=== PATIENT | female | born 1955 | race Caucasian/White ===

== ENCOUNTER 2018-05-23 11:18 | Emergency (ER) | payer OTHER, MEDICAID ==
[~2018-05-23] VITALS: Ht 170.2 cm; Wt 105.7 kg
[2018-05-23 11:31] VITALS: BP 192/92
[2018-05-23] MEDS ORDERED: methylPREDNISolone SOD SUCC 125 MG/2 ML IVPush ONE (12:30)
[2018-05-23] MEDS ORDERED: KETOROLAC 30 MG/1 ML IVPush ONE (12:30)
[2018-05-23] MEDS ORDERED: DIAZEPAM 5 MG/ML, 2ML IVPush ONE (12:30)
[2018-05-23] MEDS ORDERED: SODIUM CHLORIDE FLUSH 10ML SYR IVF ONE (12:30)
[2018-05-23 12:37] LABS: BASOPHILS # (AUTO) 0.05 x10^3/uL (0-0.1); BASOPHILS % (AUTO) 1 % (0-1); EOSINOPHILS # (AUTO) 0.12 x10^3/uL (0-0.4); EOSINOPHILS % (AUTO) 2 % (1-7); LYMPHOCYTES # (AUTO) 1.67 x10^3/uL (1-3.4); LYMPHOCYTES % (AUTO) 29 % (22-44); MD NO; MEAN CORPUSCULAR HEMOGLOBIN 29.6 pg (27.0-34.8); MEAN CORPUSCULAR HGB CONC 33.4 g/dL (32.4-35.8); MEAN CORPUSCULAR VOLUME 88.7 fL (80-100); MEAN PLATELET VOLUME 7.9 fL (7.4-10.4); MONOCYTES # (AUTO) 0.41 x10^3/uL (0.2-0.8); MONOCYTES % (AUTO) 7 % (2-9); NEUTROPHILS # (AUTO) 3.52 x10^3/uL (1.8-6.8); NEUTROPHILS % (AUTO) 61 % (42-75); PLATELET COUNT 272 x10^3/uL (130-400); RED BLOOD COUNT 4.71 x10^6/uL (3.82-5.3); RED CELL DISTRIBUTION WIDTH 13.6 % (9.6-15.2)
[2018-05-23 12:46] LABS: ALANINE AMINOTRANSFERASE 20 U/L (12-78); ALBUMIN 3.9 g/dL (3.4-5.0); ANION GAP 6 mmol/L (5-15); CALCIUM 9.2 mg/dL (8.5-10.1); CHLORIDE 111 mmol/L (98-107); CREATININE 0.85 mg/dL (0.55-1.02)
[2018-05-23] MEDS ORDERED: methylPREDNISolone SOD SUCC 125 MG/2 ML ONE (12:46)
[2018-05-23] MEDS ORDERED: KETOROLAC 30 MG/1 ML ONE (12:46)
[2018-05-23 12:56] LABS: ALKALINE PHOSPHATASE 100 U/L (45-117); BILIRUBIN,TOTAL 0.4 mg/dL (0.2-1.0); TOTAL PROTEIN 6.9 g/dL (6.4-8.2)
--- NOTE | 2018-05-23 13:19 | NUR ---
PT REPORTS RELIEF OF DISCOMFORT AFTER VALIUM GIVEN
--- NOTE | 2018-05-23 13:30 | NUR ---
PT DRESSED SELF STS SHE IS BEING DCD WITH OUT GETTING MORE PAIN MEDS REQUIRED PT TO PULL UP SLEVE TO DC IV SHE WAS RELUCTANT STATING SHE COULD DO IT AT HOME VERY ANXIOUS TO LEAVE STS DOES NOT WANT HER DC PAPERS
--- NOTE | 2018-05-23 13:44 | NUR ---
PT UPSET WITH CARE ON DC REFUSED TO WAIT FOR DC PAPERS OR RX STS WE HAVE NOT TREATED HER PAIN PT REFUSED WC ON DC AND AMBULATED WELL WITH STEADY GAIT PT VERBALY ABUSSIVE ON HER WAY OUT REFUSED TO GO TO DC DESK
[2018-05-23] MEDS ORDERED: MORPHINE SULFATE 4 MG/ML, 1ML IVPush PRN (14:00)
== END 2018-05-23 13:57 | disposition home or self-care (01) ==
LOC: ED 13:51
DX: M54.16 Radiculopathy, lumbar region (principal); M54.42 Lumbago with sciatica, left side; Z87.891 Personal history of nicotine dependence; Z90.49 Acquired absence of other specified parts of digestive tract
CPT/HCPCS: 36415; 71045; 80053; 85025; 93005; 96374; 96375; 99284; J1885; J2930; J3360

== ENCOUNTER 2019-04-01 09:57 | Emergency (ER) | payer MEDICAID, OTHER ==
[~2019-04-01] VITALS: Ht 172.7 cm; Wt 93.1 kg
[~2019-04-01 09:57] MED LIST: DULO60CA7 PO; HYDR-36 PO; IBUP-1223 PO; LAMO25TB7 PO; LISI-424 PO; METH750T87 PO; OMEP40CA42 PO; TERI14TA PO
--- NOTE | 2019-04-01 10:29 | NUR ---
FIRST CONTACT WITH PT. PT C/O: RIGHT SHOULDER PAIN SINCE DECEMBER 2018 WITH A MECHANICAL GLF "last month" BECAUSE OF DOG. "I GO TO PAIN MANAGEMENT AND THEY SUGGESTED AN INJECTION IN THE [place] BY MY APPOINTMENT GOT RESCHEDULED OUT FURTHER." PT TAKES LISINOPRIL DAILY AND REPORTS TAKING IT THIS MORNING. PT REPORTS INFUSIONS OF STEROIDS AND LAST IV INFUSION WAS ON SUNDAY, PT REPORTS TAKING ORAL STEROIDS AT HOME. PT'S AOX4. RESPS EVEN AND UNLABORED. BP/SPO2 MONITORS IN PLACE. CALL LIGHT WITHIN REACH.
--- NOTE | 2019-04-01 10:33 | NUR ---
edmd at bedside to evaluate at this time.
--- NOTE | 2019-04-01 10:44 | NUR ---
pt to xray at this time.
[2019-04-01] MEDS ORDERED: HYDROmorphone 1 MG/ML, 1ML INJ ONE (10:46)
[2019-04-01] MEDS ORDERED: ONDANSETRON ODT 4 MG ONE (10:46)
--- NOTE | 2019-04-01 10:49 | NUR ---
pt amb to br with steady gait.
--- NOTE | 2019-04-01 10:49 | NUR ---
pt back to room from xray.
--- NOTE | 2019-04-01 10:57 | NUR ---
pt medicated per emar. pt tolerated well.
[2019-04-01] MEDS ORDERED: HYDROmorphone 1 MG/ML, 1ML INJ IM ONE (11:00)
[2019-04-01] MEDS ORDERED: ONDANSETRON ODT 4 MG PO ONE (11:00)
[2019-04-01 12:00] VITALS: BP 142/85
--- NOTE | 2019-04-01 12:20 | NUR ---
SLING APPLIED BY EMT.
--- NOTE | 2019-04-01 12:32 | NUR ---
Patient given discharge instructions and they have confirmed that they understand the instructions. Patient ambulatory with steady gait.
== END 2019-04-01 12:33 | disposition home or self-care (01) ==
LOC: ED 12:15
DX: M25.511 Pain in right shoulder (principal); G89.29 Other chronic pain; I10 Essential (primary) hypertension
CPT/HCPCS: 73030; 96372; 99283; J1170; Q0162

== ENCOUNTER 2019-05-08 11:06 | Emergency (ER) | payer MEDICAID, OTHER ==
[~2019-05-08] VITALS: Ht 172.7 cm; Wt 90.0 kg
--- NOTE | 2019-05-08 11:30 | NUR ---
Late Entry: Pt changed into gown, resting in gurney, NAD, denies additional needs, call light within reach, daughter at bedside, WCTM.
[2019-05-08] MEDS ORDERED: MORPHINE SULFATE 4 MG/ML, 1ML IVPush PRN (12:00)
[2019-05-08] MEDS ORDERED: SODIUM CHLORIDE FLUSH 10ML SYR IVF ONE (12:00)
[2019-05-08] MEDS ORDERED: KETOROLAC 30 MG/1 ML IVPush ONE (12:00)
[2019-05-08] MEDS ORDERED: DIAZEPAM 5 MG/ML, 2ML IVPush ONE (12:00)
--- NOTE | 2019-05-08 12:30 | NUR ---
late entry: Pt resting in romariorkristin, daughter at bedside NAD, denies additional needs, call light within reach, Dr Nathan performed evaluation and discussed plan of care with pt, WCTM.
[2019-05-08] MEDS ORDERED: DIAZEPAM 5 MG/ML, 2ML ONE (12:34)
[2019-05-08] MEDS ORDERED: MORPHINE SULFATE 4 MG/ML, 1ML ONE (12:35)
[2019-05-08] MEDS ORDERED: KETOROLAC 30 MG/1 ML ONE (12:35)
[2019-05-08 13:15] VITALS: BP 170/86
--- NOTE | 2019-05-08 13:35 | NUR ---
pt ready to discharge, given instructions, getting dressed with daughters assistance, NAD, denies additional needs at this time.
== END 2019-05-08 13:38 | disposition home or self-care (01) ==
LOC: ED 12:04
DX: M54.5 Low back pain (principal); I10 Essential (primary) hypertension; Z98.51 Tubal ligation status; Z90.49 Acquired absence of other specified parts of digestive tract
CPT/HCPCS: 72110; 96374; 96375; 99284; J1885; J2270; J3360

== ENCOUNTER 2019-05-26 11:13 | Inpatient (IN) | payer OTHER ==
[~2019-05-26] VITALS: Ht 172.7 cm; Wt 91.8 kg
[2019-05-26] MEDS ORDERED: HYDROmorphone 1 MG/ML, 1ML INJ ONE ×2 (12:16→14:02)
[2019-05-26] MEDS ORDERED: ONDANSETRON 2MG/ML, 2ML ONE (12:16)
[2019-05-26] MEDS: HYDROmorphone 2 MG/ML, 1ML IVPush PRN ×2 (12:27→14:04)
[2019-05-26] MEDS ORDERED: ONDANSETRON 2MG/ML, 2ML IVPush ONE (12:30)
[2019-05-26] MEDS ORDERED: SODIUM CHLORIDE FLUSH 10ML SYR IVF ONE (12:30)
--- NOTE | 2019-05-26 12:45 | NUR ---
BREAK RN NOTE: PT PRESENTS TO ED WITH C/O LOWER BACK PAIN THAT IS CHRONIC BUT WORSE IN LAST MONTH. PT STATES SHE BELIEVES HER NEUROSTIMULATOR IS DISPLACED. NO ERYTHEMA, MINIMAL EDEMA NOTED TO SITE (JUST LEFT OF MIDLINE LOWER BACK.) PT IS HYPERTENSIVE, DID NOT TAKE HTN MEDS TODAY. NOTES SHE HAD SOME LEFT ARM PAIN IN WAIT ROOM, EKG ORDERED. PIV PLACED, PT MEDICATED PER EMAR, ALL MONITORS IN PLACE. NSR ON SPOUTING INSTALLER WITH NO ECTOPY NOTED. CALL LIGHT IN REACH. REPORT GIVEN TO PRIMARY RN BLADIMIR.
[2019-05-26 12:56] LABS: BASOPHILS # (AUTO) 0.09 x10^3/uL (0-0.1); BASOPHILS % (AUTO) 1 % (0-1); EOSINOPHILS # (AUTO) 0.09 x10^3/uL (0-0.4); EOSINOPHILS % (AUTO) 1 % (1-7); LYMPHOCYTES # (AUTO) 2.17 x10^3/uL (1-3.4); LYMPHOCYTES % (AUTO) 25 % (22-44); MD NO; MEAN CORPUSCULAR HEMOGLOBIN 29.5 pg (27.0-34.8); MEAN CORPUSCULAR HGB CONC 33.3 g/dL (32.4-35.8); MEAN CORPUSCULAR VOLUME 88.5 fL (80-100); MEAN PLATELET VOLUME 7.5 fL (7.4-10.4); MONOCYTES # (AUTO) 0.53 x10^3/uL (0.2-0.8); MONOCYTES % (AUTO) 6 % (2-9); NEUTROPHILS # (AUTO) 5.95 x10^3/uL (1.8-6.8); NEUTROPHILS % (AUTO) 67 % (42-75); PLATELET COUNT 318 x10^3/uL (130-400); RED BLOOD COUNT 4.92 x10^6/uL (3.82-5.3); RED CELL DISTRIBUTION WIDTH 14.3 % (9.6-15.2)
[2019-05-26] MEDS ORDERED: LISINOPRIL 20 MG TABLET PO ONE (13:00)
[2019-05-26 13:06] LABS: ALBUMIN 3.8 g/dL (3.4-5.0); ANION GAP 6 mmol/L (5-15); CALCIUM 9.2 mg/dL (8.5-10.1); CHLORIDE 109 mmol/L (98-107); CREATININE 0.82 mg/dL (0.55-1.02)
[2019-05-26] MEDS ORDERED: LISINOPRIL 20 MG TABLET ONE (13:10)
--- NOTE | 2019-05-26 13:17 | NUR ---
pt medicated per emar pt tolerated well.
--- NOTE | 2019-05-26 13:23 | NUR ---
PT TO CT AT THIS TIME.
[2019-05-26] MEDS ORDERED: GABA600T7 PO (13:26)
[2019-05-26] MEDS ORDERED: TIZA4TAB2 PO (13:27)
[2019-05-26 13:41] LABS: TROPONIN I < 0.015 ng/mL (0.000-0.045)
[2019-05-26] MEDS ORDERED: OMNIPAQUE 350 MG/ML, 100ML BOTTLE ONE (13:52)
--- NOTE | 2019-05-26 14:16 | NUR ---
PT MEDICATED PER EMAR FOR PAIN. PT TOLERATED WELL.
[2019-05-26] MEDS ORDERED: SODIUM CHLORIDE FLUSH 10ML SYR IVF PRN (15:00)
[2019-05-26] MEDS: NICOTINE 7 MG/24 HR PATCH.TD24 TD SCH (15:10)
--- NOTE | 2019-05-26 15:11 | NUR ---
pt refused nicotine patch at this time. pt's aox4. resps even and unlabored. pt's daughter at bedside.
--- NOTE | 2019-05-26 15:25 | NUR ---
REPORT GIVEN TO AMADOU RM. ALL QUESTIONS ANSWERED.
[2019-05-26] MEDS ORDERED: METHOCARBAMOL 500 MG TABLET PO PRN (15:30)
[2019-05-26] MEDS ORDERED: IBUPROFEN 600 MG TABLET PO PRN (15:30)
[2019-05-26] MEDS ORDERED: hydrALAzine 20 MG/ML, 1ML IVPush PRN (15:30)
[2019-05-26] MEDS ORDERED: POLYETHYLENE GLYCOL 17 GM PACKET PO PRN (15:30)
[2019-05-26] MEDS ORDERED: LABETALOL 5MG/ML, 20ML IVPush PRN (15:30)
[2019-05-26] MEDS ORDERED: ACETAMINOPHEN 325 MG TABLET PO PRN (15:30)
[2019-05-26] MEDS ORDERED: LIDODERM 5% PATCH TD PRN (15:30)
[2019-05-26 16:02] LABS: INTERNATIONAL NORMALIZED RATIO 0.91 (0.93-1.1); PROTHROMBIN TIME 9.6 Seconds (9.6-11.5)
[2019-05-26 16:04] VITALS: BP 160/82
[2019-05-26] MEDS ORDERED: OMEPRAZOLE 20 MG CAPSULE.DR PO ONE (16:30)
[2019-05-26] MEDS: GABAPENTIN 300 MG CAPSULE PO SCH ×2 (16:46→20:33)
[2019-05-26] MEDS: OXYcodone/APAP 5/325MG TABLET PO PRN ×2 (16:47→21:16)
[2019-05-26] MEDS: BACLOFEN 10 MG TABLET PO PRN (16:48)
[2019-05-26] MEDS: morphine SULFATE 10 MG/ML, 1ML IVPush PRN (18:19)
[2019-05-26] MEDS: LACTULOSE 10 GM/15 ML UDC PO SCH (20:27)
[2019-05-26] MEDS: LAMOTRIGINE 25 MG TABLET PO SCH (20:33)
[2019-05-26 21:05] VITALS: BP 125/52
[2019-05-27] MEDS: OXYcodone/APAP 5/325MG TABLET PO PRN ×4 (01:43→20:52)
[2019-05-27 01:44] VITALS: BP 164/91
[2019-05-27] MEDS: morphine SULFATE 10 MG/ML, 1ML IVPush PRN ×5 (04:27→22:03)
[2019-05-27 05:58] LABS: CHLORIDE 108 mmol/L (98-107)
[2019-05-27 06:05] LABS: ALANINE AMINOTRANSFERASE 15 U/L (12-78); ALBUMIN 3.2 g/dL (3.4-5.0); ALKALINE PHOSPHATASE 70 U/L (45-117); ANION GAP 3 mmol/L (5-15); BILIRUBIN,TOTAL 0.3 mg/dL (0.2-1.0); CALCIUM 8.6 mg/dL (8.5-10.1); CREATININE 0.82 mg/dL (0.55-1.02); TOTAL PROTEIN 6.1 g/dL (6.4-8.2)
[2019-05-27 06:07] LABS: BASOPHILS # (AUTO) 0.06 x10^3/uL (0-0.1); BASOPHILS % (AUTO) 1 % (0-1); EOSINOPHILS # (AUTO) 0.24 x10^3/uL (0-0.4); EOSINOPHILS % (AUTO) 4 % (1-7); LYMPHOCYTES # (AUTO) 2.41 x10^3/uL (1-3.4); LYMPHOCYTES % (AUTO) 41 % (22-44); MD NO; MEAN CORPUSCULAR HEMOGLOBIN 29.8 pg (27.0-34.8); MEAN CORPUSCULAR HGB CONC 33.2 g/dL (32.4-35.8); MEAN CORPUSCULAR VOLUME 89.8 fL (80-100); MEAN PLATELET VOLUME 7.9 fL (7.4-10.4); MONOCYTES # (AUTO) 0.54 x10^3/uL (0.2-0.8); MONOCYTES % (AUTO) 9 % (2-9); NEUTROPHILS % (AUTO) 45 % (42-75); PLATELET COUNT 267 x10^3/uL (130-400); RED BLOOD COUNT 4.29 x10^6/uL (3.82-5.3); RED CELL DISTRIBUTION WIDTH 14.4 % (9.6-15.2)
[2019-05-27 07:17] VITALS: BP 135/80
[2019-05-27] MEDS: GABAPENTIN 300 MG CAPSULE PO SCH ×3 (08:05→20:39)
[2019-05-27] MEDS: DULOXETINE 30 MG CAPSULE.DR PO SCH (08:05)
[2019-05-27] MEDS: SENNA/DOCUSATE TABLET PO SCH (08:06)
[2019-05-27] MEDS: LAMOTRIGINE 25 MG TABLET PO SCH ×2 (08:06→20:39)
[2019-05-27] MEDS: LACTULOSE 10 GM/15 ML UDC PO SCH ×2 (08:06→20:40)
[2019-05-27] MEDS ORDERED: TIZANIDINE 4MG TABLET PO SCH (09:00)
[2019-05-27] MEDS ORDERED: TERIFLUNOMIDE 14 MG PO SCH (09:00)
[2019-05-27] MEDS ORDERED: LISINOPRIL 10 MG TABLET PO SCH (09:00)
[2019-05-27] MEDS: ERGOCALCIFEROL 50,000 UNIT CAPSULE PO SCH (09:41)
[2019-05-27] MEDS: HEPARIN 5,000 UNITS/ML, 1ML SQ SCH ×2 (14:30→19:33)
[2019-05-27] MEDS ORDERED: OXYB-39 PO (15:13)
[2019-05-27] MEDS: NICOTINE 7 MG/24 HR PATCH.TD24 TD SCH (15:21)
[2019-05-27 15:28] VITALS: BP 181/97
[2019-05-27 20:09] VITALS: BP 177/97
[2019-05-27] MEDS ORDERED: GABAPENTIN 100 MG CAPSULE ONE (20:34)
[2019-05-27] MEDS: BACLOFEN 10 MG TABLET PO PRN (20:39)
[2019-05-27] MEDS: METOCLOPRAMIDE 5 MG/ML, 2ML IVPush PRN (22:08)
[2019-05-28 00:32] VITALS: BP 169/82
[2019-05-28] MEDS: OXYcodone/APAP 5/325MG TABLET PO PRN ×4 (00:44→18:24)
[2019-05-28] MEDS: morphine SULFATE 10 MG/ML, 1ML IVPush PRN ×4 (02:32→21:18)
[2019-05-28] MEDS: HEPARIN 5,000 UNITS/ML, 1ML SQ SCH ×2 (04:37→07:28)
[2019-05-28] MEDS: BACLOFEN 10 MG TABLET PO PRN (05:03)
[2019-05-28 06:30] VITALS: BP 164/88
[2019-05-28] MEDS: DULOXETINE 30 MG CAPSULE.DR PO SCH (07:27)
[2019-05-28] MEDS: LAMOTRIGINE 25 MG TABLET PO SCH ×2 (07:27→21:00)
[2019-05-28] MEDS: TERIFLUNOMIDE 14 MG PO SCH (08:50)
[2019-05-28] MEDS: CYCLOBENZAPRINE 10 MG TABLET PO SCH ×3 (08:51→21:04)
[2019-05-28] MEDS: LACTULOSE 10 GM/15 ML UDC PO SCH ×2 (08:51→21:05)
[2019-05-28] MEDS: AMLODIPINE 5 MG TABLET PO SCH ×2 (08:52→21:04)
[2019-05-28] MEDS: GABAPENTIN 300 MG CAPSULE PO SCH ×3 (08:52→21:04)
[2019-05-28] MEDS: LISINOPRIL 40 MG TABLET PO SCH (08:52)
[2019-05-28] MEDS: SENNA/DOCUSATE TABLET PO SCH (08:52)
[2019-05-28 15:46] VITALS: BP 125/71
[2019-05-28] MEDS: NICOTINE 7 MG/24 HR PATCH.TD24 TD SCH (16:28)
[2019-05-28 18:53] VITALS: BP 165/92
[2019-05-29] MEDS: morphine SULFATE 10 MG/ML, 1ML IVPush PRN ×5 (00:19→18:38)
[2019-05-29 00:37] VITALS: BP 172/99
[2019-05-29] MEDS: OXYcodone/APAP 5/325MG TABLET PO PRN ×3 (02:50→20:24)
[2019-05-29] MEDS ORDERED: MELATONIN 3 MG TABLET PO SCH (03:00)
[2019-05-29] MEDS ORDERED: ROPivacaine/PF 0.2%, 10 ML ONE (07:21)
[2019-05-29] MEDS ORDERED: LIDOCAINE-MPF 1%, 5ML ONE (07:22)
[2019-05-29] MEDS: TERIFLUNOMIDE 14 MG PO SCH (09:00)
[2019-05-29 09:30] VITALS: BP 184/84
[2019-05-29] MEDS: LACTULOSE 10 GM/15 ML UDC PO SCH ×2 (09:54→20:24)
[2019-05-29] MEDS: SENNA/DOCUSATE TABLET PO SCH (09:55)
[2019-05-29] MEDS: DULOXETINE 30 MG CAPSULE.DR PO SCH (09:56)
[2019-05-29] MEDS: LAMOTRIGINE 25 MG TABLET PO SCH ×2 (09:57→20:24)
[2019-05-29] MEDS: GABAPENTIN 300 MG CAPSULE PO SCH ×3 (09:57→20:23)
[2019-05-29] MEDS: LISINOPRIL 40 MG TABLET PO SCH (09:57)
[2019-05-29] MEDS: CYCLOBENZAPRINE 10 MG TABLET PO SCH ×3 (09:57→20:23)
[2019-05-29] MEDS: AMLODIPINE 5 MG TABLET PO SCH ×2 (10:00→20:23)
[2019-05-29 13:58] VITALS: BP 155/70
[2019-05-29] MEDS: NICOTINE 7 MG/24 HR PATCH.TD24 TD SCH (15:30)
[2019-05-29 20:02] VITALS: BP 156/82
[2019-05-29] MEDS: OXYBUTYNIN CHLORIDE 5 MG TABLET PO SCH (20:23)
[2019-05-29] MEDS: CALCIUM CARBONATE 500 MG TAB.CHEW PO PRN (22:19)
[2019-05-29] MEDS: TRAZODONE 50MG TABLET PO PRN (22:19)
[2019-05-30 01:43] VITALS: BP 156/98
[2019-05-30] MEDS: morphine SULFATE 10 MG/ML, 1ML IVPush PRN ×3 (02:03→20:45)
[2019-05-30] MEDS: METOCLOPRAMIDE 5 MG/ML, 2ML IVPush PRN (05:31)
[2019-05-30 07:32] VITALS: BP 161/97
[2019-05-30] MEDS: ONDANSETRON ODT 4 MG PO PRN ×2 (08:42→20:43)
[2019-05-30] MEDS: SENNA/DOCUSATE TABLET PO SCH (08:43)
[2019-05-30] MEDS: OXYBUTYNIN CHLORIDE 5 MG TABLET PO SCH ×2 (08:43→20:46)
[2019-05-30] MEDS: DULOXETINE 30 MG CAPSULE.DR PO SCH (08:43)
[2019-05-30] MEDS: LISINOPRIL 40 MG TABLET PO SCH (08:43)
[2019-05-30] MEDS: OMEPRAZOLE 20 MG CAPSULE.DR PO SCH (08:43)
[2019-05-30] MEDS: GABAPENTIN 300 MG CAPSULE PO SCH ×3 (08:43→20:46)
[2019-05-30] MEDS: AMLODIPINE 5 MG TABLET PO SCH ×2 (08:44→20:45)
[2019-05-30] MEDS: CHLORTHALIDONE 25 MG TABLET PO SCH (08:44)
[2019-05-30] MEDS: LAMOTRIGINE 25 MG TABLET PO SCH ×2 (08:44→20:46)
[2019-05-30] MEDS: CYCLOBENZAPRINE 10 MG TABLET PO SCH ×3 (08:45→20:46)
[2019-05-30] MEDS: LACTULOSE 10 GM/15 ML UDC PO SCH ×2 (08:45→20:45)
[2019-05-30] MEDS: TERIFLUNOMIDE 14 MG PO SCH (08:45)
[2019-05-30] MEDS: BUTALB/APAP/CAFFEINE 50MG/325MG/40MG PO PRN ×3 (09:56→22:40)
[2019-05-30 13:51] VITALS: BP 152/83
[2019-05-30] MEDS: NICOTINE 7 MG/24 HR PATCH.TD24 TD SCH (15:30)
[2019-05-30] MEDS ORDERED: PROMETHAZINE 25 MG/ML, 1ML IM PRN (16:00)
[2019-05-30 18:56] VITALS: BP 104/81
[2019-05-30] MEDS: TRAZODONE 50MG TABLET PO PRN (22:40)
[2019-05-30] MEDS: OXYcodone 5 MG/5 ML ORAL.SOL UDC PO PRN (22:40)
[2019-05-31 02:10] VITALS: BP 113/67
[2019-05-31] MEDS: OMEPRAZOLE 20 MG CAPSULE.DR PO SCH (06:04)
[2019-05-31 07:13] VITALS: BP 108/72
[2019-05-31] MEDS: TERIFLUNOMIDE 14 MG PO SCH (08:46)
[2019-05-31] MEDS: LACTULOSE 10 GM/15 ML UDC PO SCH ×2 (08:48→20:12)
[2019-05-31] MEDS: LAMOTRIGINE 25 MG TABLET PO SCH ×2 (08:49→20:12)
[2019-05-31] MEDS: GABAPENTIN 300 MG CAPSULE PO SCH ×3 (08:49→20:12)
[2019-05-31] MEDS: SENNA/DOCUSATE TABLET PO SCH (08:49)
[2019-05-31] MEDS: OXYBUTYNIN CHLORIDE 5 MG TABLET PO SCH ×2 (08:50→20:12)
[2019-05-31] MEDS: CYCLOBENZAPRINE 10 MG TABLET PO SCH ×3 (08:51→20:12)
[2019-05-31] MEDS: LISINOPRIL 40 MG TABLET PO SCH (08:51)
[2019-05-31] MEDS: BUTALB/APAP/CAFFEINE 50MG/325MG/40MG PO PRN ×3 (08:51→20:17)
[2019-05-31] MEDS: CHLORTHALIDONE 25 MG TABLET PO SCH (08:52)
[2019-05-31] MEDS: DULOXETINE 30 MG CAPSULE.DR PO SCH (08:53)
[2019-05-31 10:32] VITALS: BP 116/79
[2019-05-31] MEDS: morphine SULFATE 10 MG/ML, 1ML IVPush PRN ×2 (10:33→16:20)
[2019-05-31] MEDS: OXYcodone 5 MG/5 ML ORAL.SOL UDC PO PRN ×2 (13:06→20:22)
[2019-05-31 14:00] VITALS: BP 119/79
[2019-05-31] MEDS: NICOTINE 7 MG/24 HR PATCH.TD24 TD SCH (15:03)
[2019-05-31 19:44] VITALS: BP 133/79
[2019-05-31] MEDS: CALCIUM CARBONATE 500 MG TAB.CHEW PO PRN (20:17)
[2019-05-31] MEDS: TRAZODONE 50MG TABLET PO PRN (20:17)
[2019-06-01 01:09] VITALS: BP 116/59
[2019-06-01] MEDS: OXYcodone 5 MG/5 ML ORAL.SOL UDC PO PRN ×4 (05:08→23:49)
[2019-06-01] MEDS: OMEPRAZOLE 20 MG CAPSULE.DR PO SCH ×2 (05:29→20:52)
[2019-06-01 07:23] VITALS: BP 137/84
[2019-06-01] MEDS: TERIFLUNOMIDE 14 MG PO SCH (08:20)
[2019-06-01] MEDS: GABAPENTIN 300 MG CAPSULE PO SCH ×3 (08:21→20:37)
[2019-06-01] MEDS: LACTULOSE 10 GM/15 ML UDC PO SCH ×2 (08:21→20:37)
[2019-06-01] MEDS: CYCLOBENZAPRINE 10 MG TABLET PO SCH ×3 (08:21→20:37)
[2019-06-01] MEDS: SENNA/DOCUSATE TABLET PO SCH (08:21)
[2019-06-01] MEDS: LISINOPRIL 40 MG TABLET PO SCH (08:22)
[2019-06-01] MEDS: DULOXETINE 30 MG CAPSULE.DR PO SCH (08:22)
[2019-06-01] MEDS: LAMOTRIGINE 25 MG TABLET PO SCH ×2 (08:22→20:37)
[2019-06-01] MEDS: CHLORTHALIDONE 25 MG TABLET PO SCH (08:22)
[2019-06-01] MEDS: OXYBUTYNIN CHLORIDE 5 MG TABLET PO SCH ×2 (08:22→20:37)
[2019-06-01] MEDS: morphine SULFATE 10 MG/ML, 1ML IVPush PRN ×4 (08:34→22:46)
[2019-06-01] MEDS ORDERED: MAGNESIUM CITRATE 300ML ORAL SOL PO ONE (12:00)
[2019-06-01 14:23] VITALS: BP 114/73
[2019-06-01] MEDS: NICOTINE 7 MG/24 HR PATCH.TD24 TD SCH (15:30)
[2019-06-01 20:07] VITALS: BP 130/78
[2019-06-01] MEDS: CALCIUM CARBONATE 500 MG TAB.CHEW PO PRN (23:50)
[2019-06-02 00:08] VITALS: BP 162/98
[2019-06-02] MEDS: TRAZODONE 50MG TABLET PO PRN (00:57)
[2019-06-02 04:54] LABS: BASOPHILS # (AUTO) 0.05 x10^3/uL (0-0.1); BASOPHILS % (AUTO) 1 % (0-1); EOSINOPHILS # (AUTO) 0.17 x10^3/uL (0-0.4); EOSINOPHILS % (AUTO) 3 % (1-7); LYMPHOCYTES # (AUTO) 2.51 x10^3/uL (1-3.4); LYMPHOCYTES % (AUTO) 39 % (22-44); MD NO; MEAN CORPUSCULAR HEMOGLOBIN 29.5 pg (27.0-34.8); MEAN CORPUSCULAR VOLUME 89.3 fL (80-100); MEAN PLATELET VOLUME 8.1 fL (7.4-10.4); MONOCYTES # (AUTO) 0.54 x10^3/uL (0.2-0.8); MONOCYTES % (AUTO) 8 % (2-9); NEUTROPHILS # (AUTO) 3.14 x10^3/uL (1.8-6.8); NEUTROPHILS % (AUTO) 49 % (42-75); PLATELET COUNT 265 x10^3/uL (130-400); RED BLOOD COUNT 4.26 x10^6/uL (3.82-5.3); RED CELL DISTRIBUTION WIDTH 13.7 % (9.6-15.2)
[2019-06-02 05:04] LABS: ANION GAP 5 mmol/L (5-15); CALCIUM 9.2 mg/dL (8.5-10.1); CHLORIDE 103 mmol/L (98-107)
[2019-06-02 05:07] LABS: ALANINE AMINOTRANSFERASE 15 U/L (12-78); ALKALINE PHOSPHATASE 76 U/L (45-117); BILIRUBIN,TOTAL 0.3 mg/dL (0.2-1.0); CREATININE 0.78 mg/dL (0.55-1.02); TOTAL PROTEIN 6.3 g/dL (6.4-8.2)
[2019-06-02 06:51] VITALS: BP 149/83
[2019-06-02] MEDS: OXYcodone 5 MG/5 ML ORAL.SOL UDC PO PRN (07:56)
[2019-06-02] MEDS: SENNA/DOCUSATE TABLET PO SCH (07:58)
[2019-06-02] MEDS: LACTULOSE 10 GM/15 ML UDC PO SCH ×2 (07:58→21:00)
[2019-06-02] MEDS: NICOTINE 7 MG/24 HR PATCH.TD24 TD SCH (07:59)
[2019-06-02] MEDS: LAMOTRIGINE 25 MG TABLET PO SCH ×2 (08:04→22:17)
[2019-06-02] MEDS: DULOXETINE 30 MG CAPSULE.DR PO SCH (08:04)
[2019-06-02] MEDS: OXYBUTYNIN CHLORIDE 5 MG TABLET PO SCH ×2 (08:04→22:17)
[2019-06-02] MEDS: GABAPENTIN 300 MG CAPSULE PO SCH ×3 (08:04→22:17)
[2019-06-02] MEDS: CHLORTHALIDONE 25 MG TABLET PO SCH (08:05)
[2019-06-02] MEDS: LISINOPRIL 40 MG TABLET PO SCH (08:05)
[2019-06-02] MEDS: CYCLOBENZAPRINE 10 MG TABLET PO SCH ×3 (08:05→20:31)
[2019-06-02] MEDS: TERIFLUNOMIDE 14 MG PO SCH (08:05)
[2019-06-02] MEDS ORDERED: AMLODIPINE 5 MG TABLET ONE (08:36)
[2019-06-02] MEDS: AMLODIPINE 5 MG TABLET PO SCH (08:52)
[2019-06-02] MEDS: BUTALB/APAP/CAFFEINE 50MG/325MG/40MG PO PRN (09:40)
[2019-06-02] MEDS: morphine SULFATE 10 MG/ML, 1ML IVPush PRN (12:10)
[2019-06-02] MEDS ORDERED: BUPIVACAINE/PF-EPI 0.5% 1:200K ONE (13:05)
[2019-06-02] MEDS ORDERED: BACITRACIN 50,000 UNIT ONE (13:05)
[2019-06-02] MEDS ORDERED: FENTANYL PF 250 MCG/5ML ONE (13:43)
[2019-06-02] MEDS ORDERED: MIDAZOLAM 1 MG/ML, 2ML ONE (13:43)
[2019-06-02 13:49] VITALS: BP 144/79
[2019-06-02] MEDS ORDERED: CHLORHEXIDINE 15 ML UDC ONE (14:01)
[2019-06-02] MEDS ORDERED: EPHEDRINE 50 MG/ML, 1ML ONE (14:37)
[2019-06-02] MEDS ORDERED: LIDOCAINE PF 2%, 5ML ONE (14:37)
[2019-06-02] MEDS ORDERED: PHENYLEPHRINE 10 MG/ML ONE (14:37)
[2019-06-02] MEDS ORDERED: PROPOFOL 10 MG/ML, 50ML ONE (14:37)
[2019-06-02] MEDS ORDERED: DEXAMETHASONE 4 MG/ML, 1ML ONE ×2 (14:37→16:17)
[2019-06-02] MEDS ORDERED: CHLORHEXIDINE 15 ML UDC MM ONE (15:00)
[2019-06-02] MEDS ORDERED: MIDAZOLAM 1 MG/ML, 2ML IV PRN (15:30)
[2019-06-02] MEDS ORDERED: DIAZEPAM 5 MG/ML, 2ML IVPush PRN (15:30)
[2019-06-02] MEDS ORDERED: MEPERIDINE/PF 25MG/ML,1ML IVPush PRN (15:30)
[2019-06-02] MEDS ORDERED: OXYcodone 5 MG/5 ML ORAL.SOL UDC PO PRN (15:30)
[2019-06-02] MEDS ORDERED: METOPROLOL 1 MG/ML, 5ML IV PRN (15:30)
[2019-06-02] MEDS ORDERED: hydrALAzine 20 MG/ML, 1ML IV PRN (15:30)
[2019-06-02] MEDS ORDERED: PROMETHAZINE 25 MG/ML, 1ML IV PRN (15:30)
[2019-06-02] MEDS ORDERED: ACETAMINOPHEN 325 MG TABLET PO PRN (15:30)
[2019-06-02] MEDS ORDERED: PROPOFOL 50 ML ONE (16:08)
[2019-06-02] MEDS ORDERED: CEFAZOLIN 1,000 MG ONE (16:17)
[2019-06-02] MEDS ORDERED: ROCURONIUM 10MG/ML,5ML ONE (16:17)
[2019-06-02] MEDS ORDERED: SUCCINYLCHOLINE 20 MG/ML, 10ML ONE (16:17)
[2019-06-02] MEDS ORDERED: ONDANSETRON 2MG/ML, 2ML ONE (16:17)
[2019-06-02] MEDS ORDERED: PROPOFOL 10 MG/ML, 20ML ONE (16:17)
[2019-06-02] MEDS ORDERED: hydrALAzine 20 MG/ML, 1ML ONE (17:12)
[2019-06-02] MEDS ORDERED: FENTANYL PF 100 MCG/2ML ONE (17:26)
[2019-06-02] MEDS ORDERED: DIAZEPAM 5 MG/ML, 2ML ONE (17:26)
[2019-06-02] MEDS ORDERED: HYDROmorphone 2 MG/ML, 1ML ONE (17:26)
[2019-06-02] MEDS: FENTANYL PF 100 MCG/2ML IV PRN ×2 (17:28→17:45)
[2019-06-02] MEDS: HYDROmorphone 2 MG/ML, 1ML IVPush PRN ×5 (17:30→22:12)
[2019-06-02] MEDS ORDERED: PROMETHAZINE 25 MG/ML, 1ML ONE (17:35)
[2019-06-02 18:47] VITALS: BP 129/82
[2019-06-02] MEDS ORDERED: MAGNESIUM HYDROXIDE 8%, 30ML UDC PO PRN (19:00)
[2019-06-02] MEDS ORDERED: BISACODYL 10 MG SUPP PR PRN (19:00)
[2019-06-02] MEDS ORDERED: PROMETHAZINE 25 MG/ML, 1ML IM PRN (19:00)
[2019-06-02] MEDS ORDERED: ONDANSETRON 2MG/ML, 2ML IV PRN (19:00)
[2019-06-02] MEDS ORDERED: DIPHENHYDRAMINE 50 MG/ML, 1ML IVPush PRN (19:00)
[2019-06-02] MEDS ORDERED: DIPHENHYDRAMINE 25 MG CAPSULE PO PRN (19:00)
[2019-06-02] MEDS ORDERED: DIPHENHYDRAMINE 50 MG/ML, 1ML IM PRN (19:00)
[2019-06-02] MEDS: OXYcodone/APAP 5/325MG TABLET PO PRN (20:30)
[2019-06-02] MEDS: NS + 20MEQ KCL 1,000 ML IV SCH (20:52)
[2019-06-02] MEDS: INSULIN REGULAR 100 UNITS/ML, 3ML VIAL SQ-INSULIN SCH (21:00)
[2019-06-02] MEDS: CEFAZOLIN PMX 1GM/50ML 50 ML IVPB SCH (23:11)
[2019-06-03 00:01] VITALS: BP 134/72
[2019-06-03] MEDS: HYDROmorphone 2 MG/ML, 1ML IVPush PRN ×5 (00:25→21:16)
[2019-06-03] MEDS: OXYcodone/APAP 5/325MG TABLET PO PRN ×4 (02:31→16:19)
[2019-06-03 03:06] VITALS: BP 129/74
[2019-06-03] MEDS: BUTALB/APAP/CAFFEINE 50MG/325MG/40MG PO PRN (04:21)
[2019-06-03] MEDS: ONDANSETRON ODT 4 MG PO PRN (04:21)
[2019-06-03] MEDS: NS + 20MEQ KCL 1,000 ML IV SCH ×3 (05:00→09:41)
[2019-06-03 05:23] LABS: BASOPHILS # (AUTO) 0.04 x10^3/uL (0-0.1); BASOPHILS % (AUTO) 0 % (0-1); EOSINOPHILS # (AUTO) 0.01 x10^3/uL (0-0.4); EOSINOPHILS % (AUTO) 0 % (1-7); LYMPHOCYTES # (AUTO) 0.73 x10^3/uL (1-3.4); LYMPHOCYTES % (AUTO) 7 % (22-44); MD NO; MEAN CORPUSCULAR HEMOGLOBIN 29.8 pg (27.0-34.8); MEAN CORPUSCULAR HGB CONC 33.5 g/dL (32.4-35.8); MEAN PLATELET VOLUME 7.7 fL (7.4-10.4); MONOCYTES # (AUTO) 0.72 x10^3/uL (0.2-0.8); MONOCYTES % (AUTO) 7 % (2-9); NEUTROPHILS # (AUTO) 9.44 x10^3/uL (1.8-6.8); NEUTROPHILS % (AUTO) 86 % (42-75); PLATELET COUNT 306 x10^3/uL (130-400); RED BLOOD COUNT 4.33 x10^6/uL (3.82-5.3); RED CELL DISTRIBUTION WIDTH 13.6 % (9.6-15.2)
[2019-06-03 05:26] LABS: ALANINE AMINOTRANSFERASE 18 U/L (12-78); ANION GAP 5 mmol/L (5-15); CALCIUM 8.4 mg/dL (8.5-10.1); CHLORIDE 102 mmol/L (98-107); CREATININE 0.75 mg/dL (0.55-1.02)
[2019-06-03 05:28] LABS: ALKALINE PHOSPHATASE 86 U/L (45-117); BILIRUBIN,TOTAL 0.4 mg/dL (0.2-1.0); TOTAL PROTEIN 6.4 g/dL (6.4-8.2)
[2019-06-03] MEDS: OMEPRAZOLE 20 MG CAPSULE.DR PO SCH (05:38)
[2019-06-03] MEDS ORDERED: LORazepam 2 MG/ML, 1ML IVPush ONE (06:30)
[2019-06-03] MEDS: INSULIN REGULAR 100 UNITS/ML, 3ML VIAL SQ-INSULIN SCH (07:00)
[2019-06-03] MEDS: TIZANIDINE 4MG TABLET PO SCH ×2 (07:22→10:39)
[2019-06-03] MEDS ORDERED: GADOTERATE 10 MMOL/20 ML SYR ONE (07:46)
[2019-06-03] MEDS: LACTULOSE 10 GM/15 ML UDC PO SCH ×2 (07:56→20:33)
[2019-06-03] MEDS: CEFAZOLIN PMX 1GM/50ML 50 ML IVPB SCH (07:56)
[2019-06-03] MEDS: GABAPENTIN 300 MG CAPSULE PO SCH ×3 (07:56→20:33)
[2019-06-03] MEDS: LISINOPRIL 40 MG TABLET PO SCH (07:57)
[2019-06-03] MEDS: LAMOTRIGINE 25 MG TABLET PO SCH ×2 (07:57→20:32)
[2019-06-03] MEDS: OXYBUTYNIN CHLORIDE 5 MG TABLET PO SCH ×2 (07:57→20:33)
[2019-06-03] MEDS: CHLORTHALIDONE 25 MG TABLET PO SCH (07:57)
[2019-06-03] MEDS: DULOXETINE 30 MG CAPSULE.DR PO SCH (07:57)
[2019-06-03] MEDS: AMLODIPINE 5 MG TABLET PO SCH (07:57)
[2019-06-03] MEDS: SENNA/DOCUSATE TABLET PO SCH (07:57)
[2019-06-03] MEDS: CYCLOBENZAPRINE 10 MG TABLET PO SCH ×3 (07:57→20:33)
[2019-06-03] MEDS: TERIFLUNOMIDE 14 MG PO SCH (07:57)
[2019-06-03] MEDS: ERGOCALCIFEROL 50,000 UNIT CAPSULE PO SCH (07:59)
[2019-06-03] MEDS ORDERED: SENNA/DOCUSATE TABLET PO SCH (09:00)
[2019-06-03] MEDS ORDERED: FLUTICASONE NASAL SPRAY 16GM NAS SCH (09:00)
[2019-06-03] MEDS: NICOTINE 7 MG/24 HR PATCH.TD24 TD SCH (09:41)
[2019-06-03 10:02] VITALS: BP 134/75
[2019-06-03 13:45] VITALS: BP 117/60
[2019-06-03] MEDS: CALCIUM CARBONATE 500 MG TAB.CHEW PO PRN (16:25)
[2019-06-03] MEDS ORDERED: ENOXAPARIN 40 MG/0.4 ML SQ ONE (17:30)
[2019-06-03 18:52] VITALS: BP 132/85
[2019-06-04 00:48] VITALS: BP 134/82
[2019-06-04] MEDS: NS + 20MEQ KCL 1,000 ML IV SCH ×3 (00:52→21:00)
[2019-06-04] MEDS: HYDROmorphone 2 MG/ML, 1ML IVPush PRN ×6 (00:52→20:10)
[2019-06-04] MEDS: OMEPRAZOLE 20 MG CAPSULE.DR PO SCH (04:46)
[2019-06-04 05:55] LABS: ANION GAP 6 mmol/L (5-15); CALCIUM 8.7 mg/dL (8.5-10.1); CHLORIDE 104 mmol/L (98-107)
[2019-06-04 05:56] LABS: CREATININE 0.58 mg/dL (0.55-1.02); INTERNATIONAL NORMALIZED RATIO 0.93 (0.93-1.1); PROTHROMBIN TIME 9.8 Seconds (9.6-11.5)
[2019-06-04 05:57] LABS: BASOPHILS # (AUTO) 0.04 x10^3/uL (0-0.1); BASOPHILS % (AUTO) 1 % (0-1); EOSINOPHILS # (AUTO) 0.21 x10^3/uL (0-0.4); EOSINOPHILS % (AUTO) 2 % (1-7); LYMPHOCYTES % (AUTO) 16 % (22-44); MD NO; MEAN CORPUSCULAR HEMOGLOBIN 29.5 pg (27.0-34.8); MEAN CORPUSCULAR HGB CONC 33.1 g/dL (32.4-35.8); MEAN CORPUSCULAR VOLUME 89.1 fL (80-100); MEAN PLATELET VOLUME 8.1 fL (7.4-10.4); MONOCYTES % (AUTO) 8 % (2-9); NEUTROPHILS # (AUTO) 6.23 x10^3/uL (1.8-6.8); NEUTROPHILS % (AUTO) 73 % (42-75); PLATELET COUNT 286 x10^3/uL (130-400); RED BLOOD COUNT 4.24 x10^6/uL (3.82-5.3); RED CELL DISTRIBUTION WIDTH 13.6 % (9.6-15.2)
[2019-06-04 08:00] VITALS: BP 132/97
[2019-06-04] MEDS ORDERED: MAGNESIUM CITRATE 300ML ORAL SOL PO PRN (08:30)
[2019-06-04] MEDS ORDERED: BUPIVACAINE/PF-EPI 0.25% 1:200K ONE (08:55)
[2019-06-04] MEDS ORDERED: BACITRACIN 50,000 UNIT ONE (08:55)
[2019-06-04] MEDS ORDERED: VANCOMYCIN 1,000 MG ONE (08:55)
[2019-06-04] MEDS ORDERED: BUPIVACAINE/PF 0.25% ONE (08:55)
[2019-06-04] MEDS ORDERED: BACITRACIN OINT 500U/GM, 15 GM ONE (08:55)
[2019-06-04] MEDS: LACTULOSE 10 GM/15 ML UDC PO SCH ×2 (09:00→21:00)
[2019-06-04] MEDS: SENNA/DOCUSATE TABLET PO SCH (09:00)
[2019-06-04] MEDS: CYCLOBENZAPRINE 10 MG TABLET PO SCH ×2 (09:12→17:20)
[2019-06-04] MEDS: CHLORTHALIDONE 25 MG TABLET PO SCH (09:12)
[2019-06-04] MEDS: OXYBUTYNIN CHLORIDE 5 MG TABLET PO SCH ×2 (09:12→20:46)
[2019-06-04] MEDS: LISINOPRIL 40 MG TABLET PO SCH (09:12)
[2019-06-04] MEDS: GABAPENTIN 300 MG CAPSULE PO SCH ×3 (09:12→20:45)
[2019-06-04] MEDS: AMLODIPINE 5 MG TABLET PO SCH (09:12)
[2019-06-04] MEDS: DULOXETINE 30 MG CAPSULE.DR PO SCH (09:12)
[2019-06-04] MEDS: LAMOTRIGINE 25 MG TABLET PO SCH ×2 (09:20→20:46)
[2019-06-04] MEDS: TERIFLUNOMIDE 14 MG PO SCH (09:20)
[2019-06-04] MEDS ORDERED: NEOSTIGMINE 1 MG/ML, 10ML ONE (10:30)
[2019-06-04] MEDS ORDERED: GLYCOPYRROLATE 0.2MG/1ML, 5ML ONE (10:30)
[2019-06-04] MEDS ORDERED: ROCURONIUM 10MG/ML,5ML ONE (10:30)
[2019-06-04] MEDS ORDERED: DEXAMETHASONE 4 MG/ML, 1ML ONE (10:30)
[2019-06-04] MEDS ORDERED: CEFAZOLIN 1,000 MG ONE (10:30)
[2019-06-04] MEDS ORDERED: CHLORHEXIDINE 15 ML UDC MM ONE (10:30)
[2019-06-04] MEDS ORDERED: PROPOFOL 10 MG/ML, 20ML ONE (10:30)
[2019-06-04] MEDS ORDERED: ONDANSETRON 2MG/ML, 2ML ONE (10:30)
[2019-06-04] MEDS ORDERED: FENTANYL PF 100 MCG/2ML ONE ×3 (10:30→14:55)
[2019-06-04] MEDS ORDERED: SUCCINYLCHOLINE 20 MG/ML, 10ML ONE (10:30)
[2019-06-04] MEDS ORDERED: MIDAZOLAM 1 MG/ML, 2ML ONE (10:30)
[2019-06-04] MEDS ORDERED: EPHEDRINE 50 MG/ML, 1ML ONE (11:43)
[2019-06-04] MEDS ORDERED: PHENYLEPHRINE 10 MG/ML ONE (11:43)
[2019-06-04] MEDS ORDERED: ACETAMINOPHEN 325 MG TABLET PO PRN (12:30)
[2019-06-04] MEDS ORDERED: OXYcodone 5 MG/5 ML ORAL.SOL UDC PO PRN (12:30)
[2019-06-04] MEDS ORDERED: PROMETHAZINE 25 MG/ML, 1ML IV PRN (12:30)
[2019-06-04] MEDS ORDERED: FENTANYL PF 100 MCG/2ML IV PRN (12:30)
[2019-06-04] MEDS ORDERED: MEPERIDINE/PF 25MG/ML,1ML IVPush PRN (12:30)
[2019-06-04] MEDS ORDERED: HYDROmorphone 1 MG/ML, 1ML INJ ONE (14:55)
[2019-06-04] MEDS ORDERED: DIAZEPAM 5 MG/ML, 2ML ONE (14:55)
[2019-06-04] MEDS ORDERED: OXYcodone 5 MG/5 ML ORAL.SOL UDC ONE (14:57)
[2019-06-04] MEDS: DIAZEPAM 5 MG/ML, 2ML IVPush PRN ×2 (15:13→15:23)
[2019-06-04] MEDS: HYDROmorphone 1 MG/ML, 1ML INJ IVPush PRN ×2 (15:19→15:39)
[2019-06-04] MEDS ORDERED: KETOROLAC 30 MG/1 ML ONE (15:30)
[2019-06-04] MEDS: NICOTINE 7 MG/24 HR PATCH.TD24 TD SCH (15:30)
[2019-06-04] MEDS ORDERED: KETOROLAC 30 MG/1 ML IVPush ONE (16:00)
[2019-06-04] MEDS ORDERED: KETOROLAC 30 MG/1 ML IV ONE (17:30)
[2019-06-04] MEDS ORDERED: HYDROmorphone 2 MG/ML, 1ML IVPush PRN ×2 (17:30→19:30)
[2019-06-04] MEDS ORDERED: PROMETHAZINE 25 MG/ML, 1ML IM PRN ×2 (17:30→21:30)
[2019-06-04] MEDS ORDERED: NS + 20MEQ KCL 1,000 ML IV SCH (17:30)
[2019-06-04] MEDS ORDERED: BISACODYL 10 MG SUPP PR PRN (17:30)
[2019-06-04] MEDS ORDERED: CEFAZOLIN PMX 1GM/50ML 50 ML IVPB SCH (17:30)
[2019-06-04] MEDS ORDERED: HYDROcodone/APAP 10/325 MG TABLET PO PRN ×2 (17:30→21:30)
[2019-06-04] MEDS ORDERED: MAGNESIUM HYDROXIDE 8%, 30ML UDC PO PRN ×2 (17:30→18:30)
[2019-06-04] MEDS ORDERED: ONDANSETRON 2MG/ML, 2ML IV PRN ×2 (17:30→23:30)
[2019-06-04] MEDS ORDERED: LABETALOL 5MG/ML, 20ML IV PRN ×2 (17:30→19:30)
[2019-06-04] MEDS ORDERED: LABETALOL 5MG/ML, 20ML IV SCH (17:30)
[2019-06-04] MEDS ORDERED: OXYcodone/APAP 5/325MG TABLET PO PRN (18:00)
[2019-06-04 18:33] VITALS: BP 116/70
[2019-06-04] MEDS: OXYcodone/APAP 5/325MG TABLET PO PRN ×2 (19:27→23:24)
[2019-06-04] MEDS: CEFAZOLIN PMX 1GM/50ML 50 ML IVPB SCH (20:51)
[2019-06-04] MEDS: KETOROLAC 30 MG/1 ML IVPush SCH (23:23)
[2019-06-05 00:45] VITALS: BP 109/65
[2019-06-05] MEDS: HYDROmorphone 2 MG/ML, 1ML IVPush PRN ×2 (00:55→07:29)
[2019-06-05] MEDS ORDERED: LABETALOL 5MG/ML, 20ML IV SCH (01:30)
[2019-06-05] MEDS: OXYcodone/APAP 5/325MG TABLET PO PRN ×3 (04:04→21:41)
[2019-06-05] MEDS: CEFAZOLIN PMX 1GM/50ML 50 ML IVPB SCH (04:05)
[2019-06-05 04:37] VITALS: BP 102/66
[2019-06-05] MEDS: CALCIUM CARBONATE 500 MG TAB.CHEW PO PRN ×2 (04:41→12:51)
[2019-06-05] MEDS: OMEPRAZOLE 20 MG CAPSULE.DR PO SCH (05:26)
[2019-06-05 05:28] LABS: BASOPHILS # (AUTO) 0.05 x10^3/uL (0-0.1); BASOPHILS % (AUTO) 0 % (0-1); EOSINOPHILS % (AUTO) 1 % (1-7); LYMPHOCYTES # (AUTO) 1.33 x10^3/uL (1-3.4); LYMPHOCYTES % (AUTO) 12 % (22-44); MD NO; MEAN CORPUSCULAR HEMOGLOBIN 29.7 pg (27.0-34.8); MEAN CORPUSCULAR HGB CONC 33.1 g/dL (32.4-35.8); MEAN CORPUSCULAR VOLUME 89.7 fL (80-100); MEAN PLATELET VOLUME 7.4 fL (7.4-10.4); MONOCYTES # (AUTO) 0.93 x10^3/uL (0.2-0.8); MONOCYTES % (AUTO) 8 % (2-9); NEUTROPHILS # (AUTO) 8.75 x10^3/uL (1.8-6.8); NEUTROPHILS % (AUTO) 78 % (42-75); PLATELET COUNT 264 x10^3/uL (130-400); RED BLOOD COUNT 3.47 x10^6/uL (3.82-5.3); RED CELL DISTRIBUTION WIDTH 13.7 % (9.6-15.2)
[2019-06-05 05:35] LABS: ANION GAP 5 mmol/L (5-15); CHLORIDE 99 mmol/L (98-107)
[2019-06-05] MEDS ORDERED: POTASSIUM CHLORIDE 20 MEQ TAB.ER.PRT PO ONE (07:00)
[2019-06-05] MEDS ORDERED: DICLOFENAC SODIUM 75 MG TABLET.DR PO SCH (08:00)
[2019-06-05 08:15] VITALS: BP 112/72
[2019-06-05] MEDS: LACTULOSE 10 GM/15 ML UDC PO SCH ×2 (08:19→21:40)
[2019-06-05] MEDS: SENNA/DOCUSATE TABLET PO SCH ×2 (08:21→08:23)
[2019-06-05] MEDS: LISINOPRIL 40 MG TABLET PO SCH (08:21)
[2019-06-05] MEDS: LAMOTRIGINE 25 MG TABLET PO SCH ×2 (08:21→21:41)
[2019-06-05] MEDS: DULOXETINE 30 MG CAPSULE.DR PO SCH (08:22)
[2019-06-05] MEDS: GABAPENTIN 300 MG CAPSULE PO SCH ×3 (08:22→21:41)
[2019-06-05] MEDS: DICLOFENAC SODIUM 75 MG TABLET.DR PO SCH ×2 (08:22→16:28)
[2019-06-05] MEDS: OXYBUTYNIN CHLORIDE 5 MG TABLET PO SCH ×2 (08:22→21:42)
[2019-06-05] MEDS: AMLODIPINE 5 MG TABLET PO SCH (08:22)
[2019-06-05] MEDS: TAMSULOSIN 0.4 MG CAP.ER.24H PO SCH (08:23)
[2019-06-05] MEDS: KETOROLAC 30 MG/1 ML IVPush SCH ×3 (08:24→23:37)
[2019-06-05] MEDS: TERIFLUNOMIDE 14 MG PO SCH (08:30)
[2019-06-05] MEDS: LIDODERM 5% PATCH TD SCH (09:00)
[2019-06-05] MEDS ORDERED: SENNA/DOCUSATE TABLET PO SCH (09:00)
[2019-06-05] MEDS: HYDROcodone/APAP 5/325 TABLET PO PRN ×2 (12:47→16:47)
[2019-06-05 14:20] VITALS: BP 112/73
[2019-06-05] MEDS ORDERED: ENOXAPARIN 40 MG/0.4 ML SQ SCH (15:00)
[2019-06-05] MEDS: NICOTINE 7 MG/24 HR PATCH.TD24 TD SCH (15:30)
[2019-06-05] MEDS: ENOXAPARIN 40 MG/0.4 ML SQ SCH (16:27)
[2019-06-05] MEDS: NS + 20MEQ KCL 1,000 ML IV SCH (16:46)
[2019-06-05] MEDS: HYDROmorphone 1 MG/ML, 1ML INJ IV PRN (18:35)
[2019-06-05 19:39] VITALS: BP 136/76
[2019-06-05] MEDS: LIDODERM REMOVE PATCH NOTE XX SCH (21:00)
[2019-06-05] MEDS: TRAZODONE 50MG TABLET PO PRN (21:41)
[2019-06-05] MEDS: TIZANIDINE 4MG TABLET PO PRN (21:42)
[2019-06-06 00:03] VITALS: BP 133/92
[2019-06-06] MEDS: NS + 20MEQ KCL 1,000 ML IV SCH ×2 (04:05→14:00)
[2019-06-06] MEDS: OXYcodone/APAP 5/325MG TABLET PO PRN ×5 (04:23→22:05)
[2019-06-06 05:27] LABS: BASOPHILS # (AUTO) 0.05 x10^3/uL (0-0.1); BASOPHILS % (AUTO) 1 % (0-1); EOSINOPHILS # (AUTO) 0.37 x10^3/uL (0-0.4); EOSINOPHILS % (AUTO) 5 % (1-7); LYMPHOCYTES # (AUTO) 1.57 x10^3/uL (1-3.4); LYMPHOCYTES % (AUTO) 19 % (22-44); MD NO; MEAN CORPUSCULAR HEMOGLOBIN 29.6 pg (27.0-34.8); MEAN CORPUSCULAR HGB CONC 33.6 g/dL (32.4-35.8); MEAN CORPUSCULAR VOLUME 88.1 fL (80-100); MEAN PLATELET VOLUME 7.8 fL (7.4-10.4); MONOCYTES % (AUTO) 10 % (2-9); NEUTROPHILS # (AUTO) 5.37 x10^3/uL (1.8-6.8); NEUTROPHILS % (AUTO) 66 % (42-75); PLATELET COUNT 268 x10^3/uL (130-400); RED BLOOD COUNT 3.44 x10^6/uL (3.82-5.3)
[2019-06-06] MEDS: OMEPRAZOLE 20 MG CAPSULE.DR PO SCH (06:15)
[2019-06-06] MEDS: KETOROLAC 30 MG/1 ML IVPush SCH ×3 (07:50→23:29)
[2019-06-06 08:00] VITALS: BP 150/87
[2019-06-06] MEDS: DICLOFENAC SODIUM 75 MG TABLET.DR PO SCH ×2 (08:00→16:37)
[2019-06-06] MEDS: POLYETHYLENE GLYCOL 17 GM PACKET PO SCH ×2 (08:00→09:00)
[2019-06-06] MEDS ORDERED: MAGNESIUM CITRATE 300ML ORAL SOL PO ONE (08:30)
[2019-06-06] MEDS: LACTULOSE 10 GM/15 ML UDC PO SCH ×2 (09:00→21:00)
[2019-06-06] MEDS: SENNA/DOCUSATE TABLET PO SCH (09:00)
[2019-06-06] MEDS: TERIFLUNOMIDE 14 MG PO SCH (09:00)
[2019-06-06] MEDS: OXYBUTYNIN CHLORIDE 5 MG TABLET PO SCH ×2 (09:26→22:05)
[2019-06-06] MEDS: TAMSULOSIN 0.4 MG CAP.ER.24H PO SCH (09:26)
[2019-06-06] MEDS: AMLODIPINE 5 MG TABLET PO SCH (09:26)
[2019-06-06] MEDS: LISINOPRIL 40 MG TABLET PO SCH (09:27)
[2019-06-06] MEDS: GABAPENTIN 300 MG CAPSULE PO SCH ×3 (09:27→22:05)
[2019-06-06] MEDS: LAMOTRIGINE 25 MG TABLET PO SCH ×2 (09:28→22:05)
[2019-06-06] MEDS: DULOXETINE 30 MG CAPSULE.DR PO SCH (09:28)
[2019-06-06] MEDS: LIDODERM 5% PATCH TD SCH (09:29)
[2019-06-06 14:00] VITALS: BP 150/98
[2019-06-06] MEDS: NICOTINE 7 MG/24 HR PATCH.TD24 TD SCH (15:30)
[2019-06-06] MEDS: ENOXAPARIN 40 MG/0.4 ML SQ SCH (16:35)
[2019-06-06 19:42] VITALS: BP 146/79
[2019-06-06] MEDS: TIZANIDINE 4MG TABLET PO PRN (20:03)
[2019-06-06] MEDS: HYDROmorphone 1 MG/ML, 1ML INJ IV PRN (20:03)
[2019-06-06] MEDS: LIDODERM REMOVE PATCH NOTE XX SCH (21:00)
[2019-06-06] MEDS: TRAZODONE 50MG TABLET PO PRN (22:05)
[2019-06-07] MEDS: NS + 20MEQ KCL 1,000 ML IV SCH
[2019-06-07 01:23] VITALS: BP 156/88
[2019-06-07] MEDS: OXYcodone/APAP 5/325MG TABLET PO PRN ×4 (01:59→14:43)
[2019-06-07] MEDS: HYDROmorphone 1 MG/ML, 1ML INJ IV PRN (04:34)
[2019-06-07] MEDS: TIZANIDINE 4MG TABLET PO PRN (05:29)
[2019-06-07] MEDS: OMEPRAZOLE 20 MG CAPSULE.DR PO SCH (05:29)
[2019-06-07 05:41] LABS: BASOPHILS # (AUTO) 0.03 x10^3/uL (0-0.1); BASOPHILS % (AUTO) 0 % (0-1); EOSINOPHILS # (AUTO) 0.34 x10^3/uL (0-0.4); EOSINOPHILS % (AUTO) 6 % (1-7); LYMPHOCYTES # (AUTO) 1.51 x10^3/uL (1-3.4); LYMPHOCYTES % (AUTO) 25 % (22-44); MD NO; MEAN CORPUSCULAR HEMOGLOBIN 29.4 pg (27.0-34.8); MEAN CORPUSCULAR HGB CONC 32.9 g/dL (32.4-35.8); MEAN CORPUSCULAR VOLUME 89.4 fL (80-100); MEAN PLATELET VOLUME 7.7 fL (7.4-10.4); MONOCYTES # (AUTO) 0.61 x10^3/uL (0.2-0.8); MONOCYTES % (AUTO) 10 % (2-9); NEUTROPHILS # (AUTO) 3.57 x10^3/uL (1.8-6.8); NEUTROPHILS % (AUTO) 59 % (42-75); PLATELET COUNT 311 x10^3/uL (130-400); RED BLOOD COUNT 3.59 x10^6/uL (3.82-5.3); RED CELL DISTRIBUTION WIDTH 13.5 % (9.6-15.2)
[2019-06-07 08:00] VITALS: BP 138/74
[2019-06-07] MEDS: LACTULOSE 10 GM/15 ML UDC PO SCH (08:27)
[2019-06-07] MEDS: OXYBUTYNIN CHLORIDE 5 MG TABLET PO SCH (08:30)
[2019-06-07] MEDS: GABAPENTIN 300 MG CAPSULE PO SCH (08:30)
[2019-06-07] MEDS: DULOXETINE 30 MG CAPSULE.DR PO SCH (08:30)
[2019-06-07] MEDS: SENNA/DOCUSATE TABLET PO SCH (08:30)
[2019-06-07] MEDS: LAMOTRIGINE 25 MG TABLET PO SCH (08:30)
[2019-06-07] MEDS: TAMSULOSIN 0.4 MG CAP.ER.24H PO SCH (08:30)
[2019-06-07] MEDS: LISINOPRIL 40 MG TABLET PO SCH (08:30)
[2019-06-07] MEDS: TERIFLUNOMIDE 14 MG PO SCH (08:31)
[2019-06-07] MEDS: POLYETHYLENE GLYCOL 17 GM PACKET PO SCH ×2 (08:31→08:38)
[2019-06-07] MEDS: DICLOFENAC SODIUM 75 MG TABLET.DR PO SCH (08:33)
[2019-06-07] MEDS: LIDODERM 5% PATCH TD SCH (08:37)
[2019-06-07] MEDS ORDERED: AMLODIPINE 10 MG TAB PO SCH (09:00)
[2019-06-07] MEDS ORDERED: OXYC-307 PO (12:04)
[2019-06-07] MEDS ORDERED: TIZA4CAP2 PO (12:04)
[2019-06-07] MEDS ORDERED: GABA300C PO (12:05)
[2019-06-07] MEDS ORDERED: DOXY100C2 PO (12:05)
[2019-06-07] MEDS ORDERED: AMLO10TA8 PO (12:47)
[2019-06-07] MEDS ORDERED: OMEP-110 PO (12:47)
[2019-06-07] MEDS ORDERED: LISI40TA PO (12:47)
[2019-06-07] MEDS ORDERED: TAMS-11 PO (12:47)
[2019-06-07 13:47] VITALS: BP 133/76
[2019-06-07] MEDS: NICOTINE 7 MG/24 HR PATCH.TD24 TD SCH (15:30)
[2019-06-07] MEDS: ENOXAPARIN 40 MG/0.4 ML SQ SCH (15:34)
== END 2019-06-07 16:12 | disposition home or self-care (01) | DRG 29 ==
LOC: ED 12:06 → EDIP 14:38 → 3N 15:38 → 4NE 06-01 22:11
PROVIDERS: ADMIT Internal Medicine; ATTEND Hospitalist
PROC: XRGB092 Fusion of Lumbar Vertebral Joint using Nanotextured Surface Interbody Fusion Device, Open Approach, New Technology Group 2 (ICD-10-PCS; 2019-06-02)
PROC: 0JPT0MZ Removal of Stimulator Generator from Trunk Subcutaneous Tissue and Fascia, Open Approach (ICD-10-PCS; 2019-06-02)
PROC: 00PV0MZ Removal of Neurostimulator Lead from Spinal Cord, Open Approach (ICD-10-PCS; principal; 2019-06-02 13:30)
PROC: 0SG0071 Fusion of Lumbar Vertebral Joint with Autologous Tissue Substitute, Posterior Approach, Posterior Column, Open Approach (ICD-10-PCS; 2019-06-04)
PROC: 01NB0ZZ Release Lumbar Nerve, Open Approach (ICD-10-PCS; 2019-06-04)
PROC: 00NY0ZZ Release Lumbar Spinal Cord, Open Approach (ICD-10-PCS; 2019-06-04)
DX: T85.113A Breakdown (mechanical) of implanted electronic neurostimulator, generator, initial encounter (principal); M48.54XA Collapsed vertebra, not elsewhere classified, thoracic region, initial encounter for fracture; M43.16 Spondylolisthesis, lumbar region; M51.36 Other intervertebral disc degeneration, lumbar region; D72.829 Elevated white blood cell count, unspecified; E55.9 Vitamin D deficiency, unspecified; E87.6 Hypokalemia; F32.9 Major depressive disorder, single episode, unspecified; G35 Multiple sclerosis; G89.4 Chronic pain syndrome; I10 Essential (primary) hypertension; K21.9 Gastro-esophageal reflux disease without esophagitis; K59.03 Drug induced constipation; T40.605A Adverse effect of unspecified narcotics, initial encounter; Z79.891 Long term (current) use of opiate analgesic; Z91.81 History of falling; Z98.1 Arthrodesis status; G62.9 Polyneuropathy, unspecified; M47.26 Other spondylosis with radiculopathy, lumbar region; M48.061 Spinal stenosis, lumbar region without neurogenic claudication; M51.16 Intervertebral disc disorders with radiculopathy, lumbar region; M54.9 Dorsalgia, unspecified; Z90.49 Acquired absence of other specified parts of digestive tract; Z98.51 Tubal ligation status; F17.210 Nicotine dependence, cigarettes, uncomplicated; Z83.3 Family history of diabetes mellitus; Z80.8 Family history of malignant neoplasm of other organs or systems; Z80.0 Family history of malignant neoplasm of digestive organs; E66.9 Obesity, unspecified; Z68.30 Body mass index [BMI] 30.0-30.9, adult; D64.9 Anemia, unspecified; Y83.1 Surgical operation with implant of artificial internal device as the cause of abnormal reaction of the patient, or of later complication, without mention of misadventure at the time of the procedure; Y83.8 Other surgical procedures as the cause of abnormal reaction of the patient, or of later complication, without mention of misadventure at the time of the procedure; Y92.9 Unspecified place or not applicable
CPT/HCPCS: 36415; 62284; 72100; 72132; 72158; 80048; 80053; 82040; 82306; 82962; 83735; 84100; 84132; 84484; 85025; 85610; 93005; 95938; 95941; 96374; 96375; 96376; C1713; C1729; C1776; G0378; J0690; J1100; J1170; J1650; J1885; J2250; J2405; J2550; J2704; J2710; J2795; J3010; J3360; J3370; J3480; J3490; Q0162; Q9967; A9575; C1760; C1762; C1763; C1769; J0330; J0360; J2060; J2270; J2370; J2765

== ENCOUNTER 2019-11-07 17:03 | Emergency (ER) | payer OTHER ==
[~2019-11-07] VITALS: Ht 172.7 cm; Wt 96.0 kg
[~2019-11-07 17:03] MED LIST changes: +AMLO10TA8 PO; +DOXY100C2 PO; +GABA300C PO; +GABA600T7 PO; +HYDR-3246 PO; -HYDR-36 PO; +LISI40TA PO; +OMEP-110 PO; +OXYB-39 PO; +OXYC-307 PO; +TAMS-11 PO; +TIZA4CAP2 PO; +TIZA4TAB2 PO
--- NOTE | 2019-11-07 17:17 | NUR ---
THIS IS A 64 YO F W/ C/O HTN AND HEADACHE X4 MONTHS. PT REPORTS TAKING 50MG LISINOPRIL DAILY W/ NO RELIEF. PT RESTING ON GURNEY W/ CALL LIGHT IN REACH, RESP EVEN AND UNLABORED, NADN.
[2019-11-07] MEDS ORDERED: HYDROcodone/APAP 5/325 TABLET ONE (18:22)
[2019-11-07 18:27] VITALS: BP 135/88
--- NOTE | 2019-11-07 18:27 | NUR ---
PT MEDICATED PER EMAR. PT TAKEN TO CT AT THIS TIME.
[2019-11-07] MEDS ORDERED: HYDROcodone/APAP 5/325 TABLET PO ONE (18:30)
--- NOTE | 2019-11-07 18:53 | NUR ---
REPORT GIVEN TO KODAK RM. PT RESTING ON mSilica W/ CALL LIGHT IN REACH. ALL TESTS RESULTED. PT IS UP FOR RECHECK AT THIS TIME.
[2019-11-07 19:24] LABS: MD YES
[2019-11-07 19:30] LABS: ANION GAP 7 mmol/L (5-15); CALCIUM 8.4 mg/dL (8.5-10.1); CHLORIDE 108 mmol/L (98-107); CREATININE 0.79 mg/dL (0.55-1.02)
[2019-11-07 20:00] LABS: MEAN CORPUSCULAR HEMOGLOBIN 28.8 pg (27.0-34.8); MEAN CORPUSCULAR HGB CONC 32.8 g/dL (32.4-35.8); MEAN PLATELET VOLUME 7.4 fL (7.4-10.4); PLATELET COUNT 308 x10^3/uL (130-400); RED BLOOD COUNT 4.31 x10^6/uL (3.82-5.3); RED CELL DISTRIBUTION WIDTH 14.1 % (9.6-15.2)
[2019-11-07 20:02] LABS: <PLATELET ESTIMATE> ADEQUATE; <RBC MORPHOLOGY> NORMAL; BASOS#(MANUAL) 0.07 x10^3/uL (0-0.1); BASOS% (MANUAL) 1 % (0-1); EOS#(MANUAL) 0.07 x10^3/uL (0.0-0.4); EOS% (MANUAL) 1 % (1-7); LYMPH#(MANUAL) 2.92 x10^3/uL (1-3.4); LYMPHS% (MANUAL) 40 % (22-44); MONOS#(MANUAL) 0.22 x10^3/uL (0.3-2.7); MONOS% (MANUAL) 3 % (2-9); SEG#(MANUAL) 4.02 x10^3/uL (1.8-6.8); SEGS% (MANUAL) 55 % (42-75)
[2019-11-07 20:03] LABS: <PLT MORPHOLOGY> NORMAL PLT MORPH
== END 2019-11-07 21:08 | disposition home or self-care (01) ==
LOC: ED 21:02
DX: G43.919 Migraine, unspecified, intractable, without status migrainosus (principal); I10 Essential (primary) hypertension
CPT/HCPCS: 36415; 70450; 71045; 80048; 85025; 93005; 99285

== ENCOUNTER 2020-04-03 10:54 | Emergency (ER) | payer OTHER ==
[~2020-04-03] VITALS: Ht 172.7 cm; Wt 102.0 kg
[~2020-04-03 10:54] MED LIST changes: +AMLO-211 PO; -AMLO10TA8 PO; -HYDR-3246 PO; +HYDR-3248 PO; +HYDR-3341 PO; -LISI-424 PO; +LISI-606 PO; -LISI40TA PO; +LISI40TA9 PO; -OXYC-307 PO; +OXYC-380 PO; +TIZA2CAP PO; +TRAZ50TA66 PO
--- NOTE | 2020-04-03 11:07 | NUR ---
PT COMES IN TODAY FROM THE INFUSION ROOM FOR HTN. CURRENT BP 205/115. PT STATES 11/28 HEADACHE. PT C/O SOB W/LEFT CHEST DISCOMFORT. PT HAS HX OF MS W/STEROID INFUSION, CHRONIC BACK PAIN. MONITORS CONNECTED. IV ACCESS TO LEFT HAND PLACED BY INFUSION ROOM RN.
--- NOTE | 2020-04-03 11:33 | NUR ---
MD AT BEDSIDE FOR ASSESSMENT AND TO DISCUSS PLAN OF CARE.
[2020-04-03] MEDS ORDERED: HYDROcodone/APAP 5/325 TABLET ONE (11:43)
--- NOTE | 2020-04-03 11:46 | NUR ---
ORDERED MEDICAITIONS ADMINISTERED. PT RESTING ON NICOLE. NAD. CALL LIGHT W/IN REACH.
[2020-04-03] MEDS ORDERED: HYDROcodone/APAP 5/325 TABLET PO ONE (12:00)
[2020-04-03 12:11] LABS: BASOPHILS % (AUTO) 0 % (0-1); EOSINOPHILS % (AUTO) 0 % (1-7); LYMPHOCYTES % (AUTO) 8 % (22-44); MEAN CORPUSCULAR HEMOGLOBIN 28.6 pg (27.0-34.8); MEAN CORPUSCULAR HGB CONC 32.9 g/dL (32.4-35.8); MEAN PLATELET VOLUME 7.6 fL (7.4-10.4); MONOCYTES % (AUTO) 4 % (2-9); NEUTROPHILS % (AUTO) 87 % (42-75); PLATELET COUNT 324 x10^3/uL (130-400); RED BLOOD COUNT 4.74 x10^6/uL (3.82-5.3); RED CELL DISTRIBUTION WIDTH 14.7 % (9.6-15.2)
[2020-04-03 12:12] LABS: MD NO
[2020-04-03 12:14] LABS: ALBUMIN 3.8 g/dL (3.4-5.0); ANION GAP 9 mmol/L (5-15); CALCIUM 8.5 mg/dL (8.5-10.1); CHLORIDE 104 mmol/L (98-107); CREATININE 0.95 mg/dL (0.55-1.02)
[2020-04-03 12:18] LABS: TROPONIN I < 0.015 ng/mL (0.000-0.045)
--- NOTE | 2020-04-03 12:19 | NUR ---
PT RESTING ON [place]. STATING "IM STILL HURTING". CALL LIGHT W/IN REACH. WILL CONTINUE TO MONITOR
[2020-04-03] MEDS ORDERED: METH4TAB6 PO (12:28)
[2020-04-03 13:34] VITALS: BP 169/87
--- NOTE | 2020-04-03 13:35 | NUR ---
MD AT BEDSIDE TO DISCUSS RESULTS AND DISCHARGE.
--- NOTE | 2020-04-03 14:04 | NUR ---
PT AMBULATED TO DISCHARGE W/STEADY GAIT. PT ENCOURAGED TO FOLLOWUP DISCUSSED. PT EDUCATED TO RETURN TO THE ED W/WORSENING SYMPTOMS. RX GIVEN
== END 2020-04-03 14:05 | disposition home or self-care (01) ==
LOC: ED 11:44
DX: I10 Essential (primary) hypertension (principal); R51.9 Headache, unspecified; Z90.49 Acquired absence of other specified parts of digestive tract; Z98.51 Tubal ligation status; F17.200 Nicotine dependence, unspecified, uncomplicated
CPT/HCPCS: 36415; 80048; 82040; 83880; 84484; 85025; 93005; 99284

== ENCOUNTER 2020-04-05 11:06 | Emergency (ER) | payer OTHER ==
[~2020-04-05] VITALS: Ht 172.7 cm; Wt 103.0 kg
[~2020-04-05 11:06] MED LIST changes: +METH4TAB6 PO
--- NOTE | 2020-04-05 11:28 | NUR ---
PT COMES IN C/O HTN, DIZZINESS, JARAMILLO, PALPITATIONS. PT WAS SEEN HERE SUNDAY FOR HTN. MONITORS CONNECTED. WARM BLANKETS PROVIDED. CALL LIGHT W/IN REACH
--- NOTE | 2020-04-05 11:30 | NUR ---
PROVIDER AT BEDSIDE FOR ASSESSMENT AND TO DISCUSS PLAN OF CARE.
[2020-04-05] MEDS ORDERED: MORPHINE SULFATE 4 MG/ML, 1ML ONE ×2 (11:55→14:23)
[2020-04-05] MEDS ORDERED: ONDANSETRON 2MG/ML, 2ML ONE (11:55)
[2020-04-05] MEDS ORDERED: KETOROLAC 30 MG/1 ML ONE (11:55)
[2020-04-05] MEDS ORDERED: SODIUM CHLORIDE FLUSH 10ML SYR IVF ONE (12:00)
[2020-04-05] MEDS ORDERED: ONDANSETRON 2MG/ML, 2ML IVPush ONE (12:00)
[2020-04-05] MEDS ORDERED: KETOROLAC 30 MG/1 ML IV ONE (12:00)
[2020-04-05] MEDS: MORPHINE SULFATE 4 MG/ML, 1ML IVPush PRN ×2 (12:05→14:24)
[2020-04-05 12:10] LABS: BASOPHILS % (AUTO) 0 % (0-1); EOSINOPHILS % (AUTO) 1 % (1-7); LYMPHOCYTES % (AUTO) 13 % (22-44); MEAN CORPUSCULAR HEMOGLOBIN 29.1 pg (27.0-34.8); MEAN CORPUSCULAR HGB CONC 33.3 g/dL (32.4-35.8); MEAN PLATELET VOLUME 7.5 fL (7.4-10.4); MONOCYTES % (AUTO) 6 % (2-9); NEUTROPHILS % (AUTO) 81 % (42-75); PLATELET COUNT 340 x10^3/uL (130-400); RED BLOOD COUNT 5.17 x10^6/uL (3.82-5.3)
[2020-04-05 12:21] LABS: ALANINE AMINOTRANSFERASE 23 U/L (12-78); ALBUMIN 3.6 g/dL (3.4-5.0); ANION GAP 10 mmol/L (5-15); CALCIUM 8.6 mg/dL (8.5-10.1); CHLORIDE 108 mmol/L (98-107); CREATININE 0.99 mg/dL (0.55-1.02)
[2020-04-05 12:23] LABS: ALKALINE PHOSPHATASE 72 U/L (45-117); BILIRUBIN,TOTAL 0.5 mg/dL (0.2-1.0); TOTAL PROTEIN 6.8 g/dL (6.4-8.2)
--- NOTE | 2020-04-05 12:30 | NUR ---
ORDERED MEDICATIONS ADMINISTERED. LABS COLLECTED. PT TO XRAY.
[2020-04-05 12:33] LABS: MD SCAN
--- NOTE | 2020-04-05 13:01 | NUR ---
PT RESTING ON GURNEY. STATES 5/10 BILAT HIP PAIN AND JARAMILLO BUT STATES "IT FEELS MUCH BETTER". BLOOD PRESSURE IMPROVING FOLLOWING MEDICATION ADMINISTRATION. OTHER VSS. NAD. CALL LIGHT W/IN REACH.
--- NOTE | 2020-04-05 13:16 | NUR ---
PROVIDER AT BEDSIDE TO DISCUSS RESULTS AND PLAN OF CARE
--- NOTE | 2020-04-05 13:29 | NUR ---
PT RESTING ON GURNEY. STATES 10/29 BILATERAL HIP AND LOW BACK PAIN. BLOOD PRESSURE IMPROVING. OTHER VSS. NAD. CALL LIGHT W/IN REACH
--- NOTE | 2020-04-05 13:32 | NUR ---
UA COLLECTED AND SENT TO LAB
[2020-04-05 13:43] LABS: MICROSCOPIC INDICATED
--- NOTE | 2020-04-05 14:29 | NUR ---
PT CO PAIN IN HIP. MEDICATED FOR PAIN PER ORDERS.
--- NOTE | 2020-04-05 15:05 | NUR ---
Patient/Caregiver given discharge instructions and they have confirmed that they understand the instructions. Patient ambulatory with steady gait.
[2020-04-05 15:06] VITALS: BP 155/82
== END 2020-04-05 15:07 | disposition home or self-care (01) ==
LOC: ED 11:56
DX: M51.36 Other intervertebral disc degeneration, lumbar region (principal); R94.31 Abnormal electrocardiogram [ECG] [EKG]; R51.9 Headache, unspecified; I10 Essential (primary) hypertension; Z88.8 Allergy status to other drugs, medicaments and biological substances
CPT/HCPCS: 36415; 72110; 73523; 80053; 81001; 85025; 87086; 93005; 96374; 96375; 96376; 99285; J1885; J2270; J2405

== ENCOUNTER 2020-04-08 09:00 | Emergency (ER) | payer OTHER ==
[~2020-04-08] VITALS: Ht 172.7 cm; Wt 100.7 kg
--- NOTE | 2020-04-08 09:50 | NUR ---
COMPUTER AIDED DESIGN OPERATOR: PT TO ROOM FROM TRIAGE
--- NOTE | 2020-04-08 09:59 | NUR ---
PT STATES THAT HER BP HAS BEEN IN THE 200S SYSTOLIC FOR THE LAST FEW WEEKS. IN BED ON TELE.
[2020-04-08] MEDS ORDERED: ONDANSETRON ODT 4 MG ONE (10:22)
[2020-04-08] MEDS ORDERED: HYDROmorphone 2 MG/ML, 1ML ONE (10:22)
--- NOTE | 2020-04-08 10:25 | NUR ---
ok with md to hold clonidine
[2020-04-08] MEDS ORDERED: ONDANSETRON ODT 4 MG PO ONE (10:30)
[2020-04-08] MEDS ORDERED: HYDROmorphone 2 MG/ML, 1ML IM ONE (10:30)
--- NOTE | 2020-04-08 10:31 | NUR ---
PT IN BED ADMIN PAIN MEDS.
--- NOTE | 2020-04-08 11:02 | NUR ---
PT IN BED ON PHONE.
[2020-04-08 11:50] VITALS: BP 130/82
== END 2020-04-08 12:13 | disposition home or self-care (01) ==
LOC: ED 10:04
DX: I10 Essential (primary) hypertension (principal); M54.5 Low back pain; R51.9 Headache, unspecified; R53.83 Other fatigue
CPT/HCPCS: 96372; 99283; J1170; Q0162